=== PATIENT | male | born 1980 | race African-American/Black ===

== ENCOUNTER 2016-04-22 06:33 | Emergency (ER) | payer MEDICAID ==
[~2016-04-22] VITALS: Ht 185.4 cm; Wt 77.1 kg
[~2016-04-22 06:33] MED LIST: BLOO-668 IN; INSU100V11 SQ; INSU3INS6 SQ; LISI-603 PO
[2016-04-22 06:38] VITALS: BP 144/87
== END 2016-04-22 06:55 | disposition home or self-care (01) ==
LOC: ER 06:37
DX: E11.9 Type 2 diabetes mellitus without complications (principal); I10 Essential (primary) hypertension; F17.200 Nicotine dependence, unspecified, uncomplicated; Z79.4 Long term (current) use of insulin; Z76.0 Encounter for issue of repeat prescription
CPT/HCPCS: 99283; A4606; Z7610

== ENCOUNTER 2016-05-15 12:43 | Emergency (ER) | payer MEDICAID ==
[~2016-05-15] VITALS: Ht 185.4 cm; Wt 77.1 kg
[2016-05-15] MEDS ORDERED: IV NS 0.9% 1,000 ML ONE ×3 (13:12→15:30)
[2016-05-15] MEDS ORDERED: IV SET PRIMARY 1 EA INFUS.SET MC ONE ×3 (13:12→15:30)
[2016-05-15 13:16] LABS: BASOPHILS % (AUTO) 0.5 % (0.0-2.0); DIFF TOTAL % 100 %; HEMATOCRIT 38 % (39-51); HEMOGLOBIN 12.3 g/dL (13.5-17.5); LYMPHOCYTES # (AUTO) 0.8 /CMM (0.8-4.8); LYMPHOCYTES % (AUTO) 14.2 % (20.0-44.0); MEAN CORPUSCULAR HEMOGLOBIN 30 PG (26.0-33.0); MEAN CORPUSCULAR HGB CONC 32 g/dl (31.0-36.0); MEAN CORPUSCULAR VOLUME 92 fL (80-96); MONOCYTES # (AUTO) 0.5 /CMM (0.1-1.30); NEUTROPHILS # (AUTO) 4.1 /CMM (1.8-8.9); NEUTROPHILS % (AUTO) 76.3 % (43.0-81.0); PLATELET COUNT (AUTO) 245 /CMM (150-450); RED BLOOD CELL COUNT(AUTO) 4.12 MIL/uL (4.5-6.0); WHITE BLOOD COUNT (AUTO) 5.4 K/uL (4.3-11.0)
[2016-05-15] MEDS ORDERED: IV NS 0.9% 1,000 ML BAG IV ONE (13:30)
[2016-05-15 13:33] LABS: POTASSIUM 5.5 mmol/L (3.5-5.1)
[2016-05-15 13:35] LABS: ALBUMIN 2.9 g/dL (3.4-5.0); BILIRUBIN,DIRECT 0.1 mg/dL (0.0-0.2); BILIRUBIN,TOTAL 0.7 mg/dL (0.2-1.0); CALCIUM, SERUM 8.2 mg/dL (8.5-10.1); INDIRECT BILIRUBIN 0.6 mg/dL (0.0-1.1)
[2016-05-15] MEDS ORDERED: IV NS 0.9% 1,000 ML IV ONE ×2 (14:00→16:00)
[2016-05-15] MEDS ORDERED: INSULIN REGULAR, HUMAN 100 UNIT/ML 10 ML VIAL ONE (14:13)
[2016-05-15] MEDS ORDERED: INSULIN REGULAR, HUMAN 100 UNIT/ML 10 ML VIAL SQ ONE (14:30)
[2016-05-15 15:18] LABS: ADD UA MICROSCOPIC YES; KETONES,URINE Negative (NEGATIVE); LEUKOCYTE ESTERASE ,URINE Negative (NEGATIVE); PH,URINE 5.5 (5.0-8.0)
[2016-05-15 15:19] LABS: ADD URINE CULTURE NO
[2016-05-15 16:49] VITALS: BP 138/88
== END 2016-05-15 16:49 | disposition home or self-care (01) ==
LOC: ER 12:49
DX: E11.9 Type 2 diabetes mellitus without complications (principal); I10 Essential (primary) hypertension; F17.200 Nicotine dependence, unspecified, uncomplicated; Z79.4 Long term (current) use of insulin
CPT/HCPCS: 36415; 71010; 80048; 80076; 81001; 82010; 82962 ×3; 83690; 85025; 96372; 99291; A4606; J1815; J7030 ×3; Z7610; 81000-TC

== ENCOUNTER 2016-06-16 18:31 | Emergency (ER) | payer MEDICAID ==
[~2016-06-16] VITALS: Ht 185.4 cm; Wt 77.1 kg
[2016-06-16 18:52] VITALS: BP 156/94
== END 2016-06-16 20:06 | disposition home or self-care (01) ==
LOC: ER 18:33
DX: Z76.0 Encounter for issue of repeat prescription (principal); E11.9 Type 2 diabetes mellitus without complications; I10 Essential (primary) hypertension; F17.200 Nicotine dependence, unspecified, uncomplicated; Z79.4 Long term (current) use of insulin
CPT/HCPCS: A4606; Z7610

== ENCOUNTER 2016-06-17 00:39 | Emergency (ER) | payer MEDICAID, OTHER ==
[~2016-06-17] VITALS: Ht 177.8 cm; Wt 86.2 kg
--- NOTE | 2016-06-17 00:44 | NUR ---
to bed 3 bib paramedics c/o highblood sugar, BS-HI per ems report. pt aaox4 no acute distress noted, resp even and unlabored. place pt on cardiac monitoring, continuous pox. pending er md medina.
--- NOTE | 2016-06-17 00:49 | NUR ---
kristy yap at bedside to carol shultz.
[2016-06-17] MEDS ORDERED: IV SET PRIMARY 1 EA INFUS.SET MC ONE ×4 (00:59→05:28)
[2016-06-17] MEDS ORDERED: INSULIN REGULAR, HUMAN 100 UNIT/ML 10 ML VIAL ONE ×2 (00:59→03:31)
[2016-06-17] MEDS ORDERED: IV NS 0.9% 1,000 ML ONE ×4 (00:59→05:28)
[2016-06-17] MEDS ORDERED: INSULIN REGULAR, HUMAN 100 UNIT/ML 10 ML VIAL IV ONE ×2 (01:00→04:00)
[2016-06-17] MEDS ORDERED: IV NS 0.9% 1,000 ML BAG IV ONE ×5 (01:00→05:30)
[2016-06-17 01:05] LABS: BASOPHILS % (AUTO) 0.4 % (0.0-2.0); EOSINOPHILS % (AUTO) 0.5 % (0.0-6.0); HEMATOCRIT 34 % (39-51); HEMOGLOBIN 11.2 g/dL (13.5-17.5); LYMPHOCYTES # (AUTO) 0.9 /CMM (0.8-4.8); LYMPHOCYTES % (AUTO) 16.7 % (20.0-44.0); MEAN CORPUSCULAR HEMOGLOBIN 30 PG (26.0-33.0); MEAN CORPUSCULAR HGB CONC 33 g/dl (31.0-36.0); MEAN CORPUSCULAR VOLUME 91 fL (80-96); MONOCYTES # (AUTO) 0.2 /CMM (0.1-1.30); MONOCYTES % (AUTO) 4.3 % (2.0-12.0); NEUTROPHILS # (AUTO) 4.4 /CMM (1.8-8.9); NEUTROPHILS % (AUTO) 78.1 % (43.0-81.0); PLATELET COUNT (AUTO) 317 /CMM (150-450); RDW COEFFICIENT OF VARIATION 15.3 (11.5-15.0); RED BLOOD CELL COUNT(AUTO) 3.75 MIL/uL (4.5-6.0); WHITE BLOOD COUNT (AUTO) 5.7 K/uL (4.3-11.0)
[2016-06-17 01:19] LABS: CALCIUM, SERUM 8.4 mg/dL (8.5-10.1); CREATININE 1.8 mg/dL (0.6-1.3); POTASSIUM 4.6 mmol/L (3.5-5.1)
--- NOTE | 2016-06-17 01:32 | NUR ---
pt ambulatory to the bathroom with steady gait noted.
[2016-06-17 02:23] LABS: APPEARANCE,URINE CLEAR (CLEAR); BILIRUBIN,URINE NEGATIVE (NEGATIVE); BLOOD, URINE 1+ Ery/uL (NEGATIVE); COLOR,URINE YELLOW (YELLOW); KETONES,URINE NEGATIVE (NEGATIVE); LEUKOCYTE ESTERASE ,URINE NEGATIVE (NEGATIVE); NITRITE, URINE NEGATIVE (NEGATIVE); PROTEIN,URINE 1+ mg/dl (NEGATIVE); UGLUCOSE 3+ mg/dL (NEGATIVE); UROBILINOGEN,URINE 0.2 EU/dL (0.2)
[2016-06-17 02:40] LABS: ADD URINE CULTURE NO; BACTERIA,URINE None seen /HPF (None Seen); MUCUS,URINE Rare /LPF (None Seen); RBC,URINE 0-5 /HPF (0-2); SQUAMOUS EPITHELIAL CELL,UR None Seen /HPF (None Seen); WBC,URINE NONE SEEN /HPF (0-3)
--- NOTE | 2016-06-17 04:08 | NUR ---
pt asleep, no acute distress noted, resp even and unlabored. call light within reach.
--- NOTE | 2016-06-17 06:22 | NUR ---
pt remains asleep, no acute distress noted, resp even and unlabored. call light within reach.
--- NOTE | 2016-06-17 07:16 | NUR ---
report given to am shift rn rubens.
[2016-06-17 07:35] VITALS: BP 144/89
--- NOTE | 2016-06-17 07:35 | NUR ---
IV removed. Catheter intact and site benign. Pressure and 4x4 applied to site. No bleeding noted.Patient discharged to home in stable condition. Written and verbal after care instructions given. Patient verbalizes understanding of instruction.
== END 2016-06-17 07:59 | disposition home or self-care (01) ==
LOC: ER 00:41
DX: E10.65 Type 1 diabetes mellitus with hyperglycemia (principal); E86.0 Dehydration; I10 Essential (primary) hypertension; Z79.4 Long term (current) use of insulin; F17.210 Nicotine dependence, cigarettes, uncomplicated
CPT/HCPCS: 36415; 71010; 80048; 81001; 82010; 82962 ×4; 85025; 96361; 96374; 96376; 99285; A4606; J1815 ×2; J7030 ×4; Z7610; 81000-TC